=== PATIENT | female | born 1985 | race Caucasian/White ===

== ENCOUNTER → 2019-12-08 | Outpatient (CLI) | payer OTHER ==
--- NOTE | 2019-12-09 12:49 | RADIOLOGY REPORT (SQ) ---
EXAM DESCRIPTION: [place] THYROID SCAN AND UPTAKE IMAGES COMPLETED DATE/TIME: 12/09/2019 10:21 am REASON FOR STUDY: E06.9 THYROIDITIS, UNSPECIFIED, R94.6 ABNORMAL RESULTS OF THYROID FUNCTION E06.9 THYROIDITIS, UNSPECIFIED COMPARISON: None. RADIONUCLIDE AND DOSE: 304 microcuries I-[id number]. The route of agent administration: Oral. ADDITIONAL DRUGS AND DOSES: None. TECHNIQUE: Iodine uptake was measured at 4 and 24 hours. Images of the neck were acquired. LIMITATIONS: None. FINDINGS: 4 HOUR UPTAKE RADIO-IODINE: 11.7%. Normal Range of 5-20% [facility] Normal Range of 5-15% [facility] Normal Range of 5-15% [facility] 24 HOUR UPTAKE RADIO-IODINE: 26%. Normal Range of 7-35% [facility] Normal Range of 8-35% [facility] Normal Range of 15-30% [facility] SCAN: Homogeneous uptake of the radionuclide throughout both lobes of the gland and isthmus without a reas of increased or decreased activity. OTHER: The thyroid gland is normal in size. IMPRESSION: NORMAL RADIONUCLIDE SCAN OF THYROID GLAND. NORMAL UPTAKE OF IODINE. TECHNICAL DOCUMENTATION: JOB ID: [id number] 2010 [employer]- All Rights Reserved Reading location - IP/workstation name: [email or web address]
== END ==
LOC: RAD 08:44
PROVIDERS: ATTEND Internal Medicine
DX: E06.9 Thyroiditis, unspecified (principal); R94.6 Abnormal results of thyroid function studies
CPT/HCPCS: 78014; A9516